=== PATIENT | male | born 1975 | race Caucasian/White ===

== ENCOUNTER 2023-11-08 09:30 | Emergency (ER) | payer BC, SELFPAY ==
[2023-11-08] VITALS (8 sets, daily range): BP systolic 86–103; BP diastolic 56–81
--- NOTE | 2023-11-08 11:04 | ED.GENMED ---
History of Present Illness
<Lela Pike PA-C - Last Filed: 11/08/23 19:40>
General
Chief Complaint: Fatigue
Source: patient
Exam Limitations: none
Time Seen by Provider: 11/08/23 11:00
Nursing documentation reviewed up to this point in time: agreed with
History of Present Illness
History of Present Illness:
This is a 48 y/o male with no PMH presenting to the emergency department today with concerns of headache and fatigue. Patient states that this started 8 days ago. Patient reports that this started when he started to feel a headache that would wrap
around his head like a band. Patient has no nausea or vomiting, no visual changes associated with this. Patient did not take anything for the pain. He rates the pain a 3 out of 10. Patient also notes decreased appetite, generalized fatigue, and
notes on and off fevers. Patient states that he would have times where he would have a fever of 102 and it would resolve on its own without Tylenol. Patient is concerned about meningitis. Patient has no neck pain, has had no fevers today, no
rash, he is up-to-date on his vaccinations. Patient denies chest pain, belly pain. Patient has any diarrhea or constipation. Patient fully take a deep breath without some shortness of breath and coughing. Patient denies any weakness, any
dizziness.
Past History
<Lela Pike PA-C - Last Filed: 11/08/23 19:40>
Past History
ED Past Medical History: None
ED Past Surgical History: None
Social History
Tobacco: Non-smoker
Alcohol: None
Living: with family
Review of Systems
<Lela Pike PA-C - Last Filed: 11/08/23 19:40>
Review of Systems
All Other Systems: ROS reviewed and negative except as documented in HPI and ROS
Phy Exam
<Lela Pike PA-C - Last Filed: 11/08/23 19:40>
Physical Exam
Physical Exam:
General: Patient is well appearing and in no acute distress; non-toxic
Skin: Warm and dry, no rashes or lesions
Head: Normocephalic, atraumatic
Eyes: Sclera non-icteric. EOMs intact. PERRLA.
Neck: Patent ranging his cervical spine spontaneously with no pain. No tenderness to palpation of the cervical spine or paraspinal muscles. No nuchal rigidity.
Cardiac: Regular rate and rhythm, no murmurs
Peripheral Vascular: No lower extremity swelling or edema.
Pulm: Normal respiratory effort, no wheezes, rales, rhonchi
Musculoskeletal: 5/5 strength in bilateral upper and lower extremities.
Neuro: CN II-XII intact, no focal neurologic deficits. Normal finger to nose, heel to goldstein testing. No meningismus.
Psychiatric: Appropriate mood and affect.
Course
[place];Lela Pike PA-C - Last Filed: 11/08/23 19:40>
Orders/Labs/Results
Orders:
Orders
11/08/23 09:40
ECG [Electrocardiogram (*1)] Urgent
Reason for Study: Fatigue / Weakness
EKG- Treatment ONCE
11/08/23 11:13
CBC/With Diff [Complete Blood Count/With Diff] Urgent
CMP [Comprehensive Metabolic Panel] Urgent
11/08/23 11:25
Ibuprofen [Motrin] 400 mg PO NOW STA
CR Chest - 2 Views Urgent
Comment:
Reason For Exam: shortness of breath
11/08/23 11:49
COVID-19 Antigen Urgent
Source: Nasal Swab
Influenza A+B Rapid Molecular Urgent
MELANIE Source: Nasal Swab
Specimen Description:
Abnormal Lab Results
11/08/23
11:13
RBC 3.80 L 10^6/uL
(4.70-6.10)
Hgb 12.4 L g/dL
(13.0-18.0)
Hct 34.1 L %
(39.0-52.0)
MCH 32.6 H pg
(27.0-31.0)
MPV 11.8 H fL
(7.4-10.4)
Absolute Lymphs (auto) 1.0 L 10^3/uL
(1.2-3.4)
Immature Gran % 0.6 H %
(0-0.5)
Neutrophils % 75.7 H %
(42.2-75.2)
Lymphocytes % 13.8 L %
(20.5-51.1)
Sodium 131 L mmol/L
(135-145)
Glucose 112 H mg/dl
(70-99)
ALT 63 H U/L
(0-50)
11/08/23 11:13
11/08/23 11:13
Vital Signs
Initial and Last Documented VS:
Initial Vital Signs
Temp Pulse Resp BP Pulse Ox
98.1 F 75 18 101/72 97
11/08/23 09:37 11/08/23 09:37 11/08/23 09:37 11/08/23 09:37 11/08/23 09:37
Last Documented Vital Signs
Temp Pulse Resp BP Pulse Ox
98.1 F 69 19 98/75 94
11/08/23 09:37 11/08/23 11:30 11/08/23 11:30 11/08/23 13:29 11/08/23 13:29
<Carolina Donohue DO - Last Filed: 11/08/23 13:31>
Orders/Labs/Results
Orders:
Orders
11/08/23 09:40
ECG [Electrocardiogram (*1)] Urgent
Reason for Study: Fatigue / Weakness
EKG- Treatment ONCE
11/08/23 11:13
CBC/With Diff [Complete Blood Count/With Diff] Urgent
CMP [Comprehensive Metabolic Panel] Urgent
11/08/23 11:25
Ibuprofen [Motrin] 400 mg PO NOW STA
CR Chest - 2 Views Urgent
Comment:
Reason For Exam: shortness of breath
11/08/23 11:49
COVID-19 Antigen Urgent
Source: Nasal Swab
Influenza A+B Rapid Molecular Urgent
MELANIE Source: Nasal Swab
Specimen Description:
Abnormal Lab Results
11/08/23
11:13
RBC 3.80 L 10^6/uL
(4.70-6.10)
Hgb 12.4 L g/dL
(13.0-18.0)
Hct 34.1 L %
(39.0-52.0)
MCH 32.6 H pg
(27.0-31.0)
MPV 11.8 H fL
(7.4-10.4)
Absolute Lymphs (auto) 1.0 L 10^3/uL
(1.2-3.4)
Immature Gran % 0.6 H %
(0-0.5)
Neutrophils % 75.7 H %
(42.2-75.2)
Lymphocytes % 13.8 L %
(20.5-51.1)
Sodium 131 L mmol/L
(135-145)
Glucose 112 H mg/dl
(70-99)
ALT 63 H U/L
(0-50)
11/08/23 11:13
11/08/23 11:13
Vital Signs
Initial and Last Documented VS:
Initial Vital Signs
Temp Pulse Resp BP Pulse Ox
98.1 F 75 18 101/72 97
11/08/23 09:37 11/08/23 09:37 11/08/23 09:37 11/08/23 09:37 11/08/23 09:37
Last Documented Vital Signs
Temp Pulse Resp BP Pulse Ox
98.1 F 69 19 98/75 94
11/08/23 09:37 11/08/23 11:30 11/08/23 11:30 11/08/23 13:29 11/08/23 13:29
<Lela Pike PA-C - Last Filed: 11/08/23 19:40>
MDM/Problems Addressed
Differential Diagnosis Includes:
ddx include COVID-19 infection, viral syndrome, pneumonia, viral meningitis, tension headache, complex migraine
MDM/Problems Addressed:
Headache, fatigue:
This is a 48 y/o male with no PMH presenting to the emergency department today with concerns of headache and fatigue. Patient states that this started 8 days ago. Patient reports that this started when he started to feel a headache that would wrap
around his head like a band. Patient has no nausea or vomiting, no visual changes associated with this. Patient did not take anything for the pain. Pain is 3/10. Also notes some intermittent mild shortness of breath with deep inhale and
intermittent fevers with decreased appetite. On physical exam, patient's vitals are stable, he is afebrile, well appearing. His lungs are clear. His neurological exam is unremarkable with no meningismus. No rash. Patient reports that he is up to
date on his vaccinations. No indication for LP or CT at this time. Advised patient to treat symptomatically for likely viral syndrome and to follow up with his primary. Patient stable for discharge.
Chronic conditions affecting care:
n/a
Acute Exacerbation and/or Progression of Chronic Illness:
n/a
<Lela Pike PA-C - Last Filed: 11/08/23 19:40>
*Radiology
Radiology exam reviewed: preliminary read by ED provider (no acute cardiopulmonary abnormality)
*Pulse Oximetry
Patient hypoxic: no
*Critical Care Note
Total Time (30-74mins, 75-104mins- exclusive of procedures): Not Applicable
Data Reviewed
Review of Other/Old Records Reveals: Records (reviewed ER physician documentation from 02/20/21 where patient was seen for fatigue and was diagnosed with COVID) and Discharge Summary (no discharge summaries in [facility] to review)
Source: patient and records
Prescriptions/Medications Considered But Not Given:
n/a
Further Testing Considered But Not Given:
n/a
<Lela Pike PA-C - Last Filed: 11/08/23 19:40>
Patient Management
Escalation/DeEscalation of care consider admission/obs:
Reviewed case with my attending, patient stable for discharge
ED Attending Note
<Lela Pike PA-C - Last Filed: 11/08/23 19:40>
-
Portions of this chart may have been created with voice recognition software.� Occasional wrong word or��sound alike� substitutions may have occurred due to the inherent limitations of voice recognition software.
<Carolina Donohue DO - Last Filed: 11/08/23 13:31>
ED Attending Note
Patient seen and examined by attending physician: Yes
I performed the substantive portion of visit, reviewed & personally made and approve the management plan that is documented in note by myself or JORDAN.: Yes
I performed a history and physical exam of patient and discussed management with resident, I reviewed resident's note and agree with documented findings and plan of care.: Yes
ED Attending Note:
Patient seen and examined at bedside, 48-year-old male without significant past medical history presenting to the emergency department for multiple complaints. Patient reports for the past week he has had a bandlike headache, with associated
fatigue. He also notes that he has had fevers on and off, however has not been taking any antipyretics. Reports a mild cough at end expiration. Denies any neck pain. He expresses concern for meningitis. Denies weakness or numbness to his
extremities. Denies any known sick contacts. He has not been taking any medications for the headache. Denies abdominal pain or GI symptoms. Denies additional acute medical complaints
Vital signs are normal. On exam, patient is well-appearing, no acute distress. He is nontoxic. No tenderness in the neck, no meningismus. Patient is alert, oriented, answering questions appropriately without any confusion. No focal neurologic
deficits. Lungs clear to auscultation and heart regular. Suspect viral syndrome as etiology of patient's symptoms. Without present concern for meningitis, afebrile did not have any antipyretics prior to arrival. No indication for head imaging or
LP at this. Patient had screening laboratory analysis prior to my assessment, no leukocytosis and normal electrolyte panel. Negative COVID and influenza. He notes that today he is starting to feel better. Given unremarkable workup, hemodynamic
stability, and feeling better, feel stable for discharge with continued outpatient follow-up and supportive therapy. Return precautions discussed and patient verbalized understanding
Discharge Plan
Departure
Patient Disposition: Home (Routine Discharge)
Date of Disposition: 11/08/23
Time of Disposition: 13:26
Patient with high blood pressure during this ER visit?: No
Condition: Good
Discharge Problem:
Headache, Fatigue
Instructions: Fatigue (DC), Headache, Adult ED
Prescriptions:
No Action
No Meds
hydrocodone-acetaminophen [Vicodin] 1 EACH tablet
1 ea PO Q4HPRN PRN (Reason: pain) Qty: 20 0RF
Referrals:
NONE,* [Family Provider] -
Activity Restrictions/Additional Instructions:
Today, you tested negative for COVID and flu. Your chest x-ray was normal.
Please return to the emergency department should you develop an acute worsening of your symptoms, neck pain, persistent fevers, rash, weakness, numbness or tingling, visual changes, trouble speaking, trouble walking, or any other signs or symptoms
concerning to you.
Please follow-up with your primary care provider.
Interventions
Interventions:
*Risk Screen - Suicide Last Done: 11/08/23 09:37
*General Assessment Last Done: 11/08/23 09:37
*Neglect/Abuse Screening Last Done: 11/08/23 09:37
*Nursing Disposition Last Done: 11/08/23 13:31
Discharge Date and Time
Discharge Date/Time: 11/08/23 13:31
Print Language: MALTESE
[2023-11-08 11:28] LABS: % Basophils 0.3 % (0-2); % Eosinophils 0.6 % (0-6); % Immature Granulocytes 0.6 % (0-0.5); % Lymphocytes 13.8 % (20.5-51.1); % Neutrophils 75.7 % (42.2-75.2); Absolute Monocytes 0.6 10^3/uL (0.1-0.6); Absolute Neutrophils 5.3 10^3/uL (1.4-6.5); Hematocrit 34.1 % (39.0-52.0); Hemoglobin 12.4 g/dL (13.0-18.0); Mean Corp Hgb Conc. 36.4 g/dL (33.0-37.0); Mean Corpuscular Hgb 32.6 pg (27.0-31.0); Mean Corpuscular Volume 89.7 fL (80.0-94.0); Mean Platelet Volume 11.8 fL (7.4-10.4); Nucleated Red Blood Cells % 0 % (-); Platelet Count 186 10^3/uL (130-400); Red Cell Dist. Width 12.2 % (11.5-14.5)
[2023-11-08 11:41] LABS: ALT (SGPT) 63 U/L (0-50); AST (SGOT) 53 U/L (17-59); Albumin 3.7 g/dl (3.5-5.0); Alkaline Phosphatase 94 U/L (38-126); Blood Urea Nitrogen 20 mg/dl (9-20); Calcium 8.5 mg/dl (8.4-10.2); Carbon Dioxide 28 mmol/L (22-30); Chloride 98 mmol/L (98-107); Glucose 112 mg/dl (70-99); Potassium 4.5 mmol/L (3.5-5.1); Sodium 131 mmol/L (135-145); Total Protein 6.3 g/dl (6.3-8.2); eGFR > 60.00
[2023-11-08] MEDS: MOTRIN 400 MG PO (11:48)
[2023-11-08 12:05] LABS: Total Bilirubin 1.2 mg/dl (0.2-1.3)
[2023-11-08 12:25] LABS: COVID-19 Antigen Negative (Negative)
== END 2023-11-08 13:31 | disposition home or self-care (01) ==
LOC: EMR 09:30
PROVIDERS: Physician Assistant; EMERGENCY PHYSICIAN Student in an Organized Health Care Education/Training Program
DX: R51.9 Headache, unspecified (principal); R53.83 Other fatigue
CPT/HCPCS: 99283; 71046; 80053; 85025; 87502; 87811; 93005